=== PATIENT | female | born 1990 | race Caucasian/White ===

== ENCOUNTER 2020-11-30 17:21 | Emergency (ER) | payer OTHER ==
--- OUTSIDE RECORDS SUMMARY | 2020-11-30 17:23 | XMS REPORT | Continuity of Care Document ---
:1990 Author Organization [facility] t Address [address] [place] [address] Dr. Herman [address] [place] [id number] Care Team Providers Name Role Phone LE Attending Clinician Unavailable LE Admitting Clinician Unavailable Problems This patient has no known problems. Allergies, Adverse Reactions, Alerts This patient has no known allergies or adverse reactions. Medications This patient has no known medications. Procedures This patient has no known procedures. Encounters Start End Encounter Admission Attending Care Care Encounter Source Date/Time Date/Time Type Type Clinicians Facility Department ID 2020-09-30 2020-09-30 Outpatient [facility] [id number] 00:00:00 00:00:[address] 2020-09-28 2020-09-28 Outpatient YANETH WONG [facility] [id number] 00:00:00 00:00:[address] Results This patient has no known results.
--- NOTE | 2020-11-30 21:07 | ER ---
Nurse's Notes [facility] Name: Olivia Ding Age: 30 yrs Sex: Female : 1990 Arrival Date: 11/30/2020 Time: 17:27 Bed External Waiting Private MD: Diagnosis: Presentation: 11/30 17:35 Chief complaint: Patient states: Awoke with cramping and vaginal bleeding for 2 days. ll1 Had hysterectomy 2 months ago. Cannot get comfortable now, can barely walk. + Nausea. Deep abdominal pain with BM and urination. Coronavirus screen: Client denies travel out of the [place] in the last 14 days. At this time, the client does not indicate any symptoms associated with coronavirus-19. Ebola Screen: Patient denies travel to an Ebola-affected area in the 21 days before illness onset. Initial Sepsis Screen: Does the patient meet any 2 criteria? HR > 90 bpm. No. Patient's initial sepsis screen is negative. Does the patient have a suspected source of infection? Yes: Acute abdominal pain. Risk Assessment: Do you want to hurt yourself or someone else? Patient reports no desire to harm self or others. Onset of symptoms was November 29, 2020. 17:35 Method Of Arrival: Ambulatory ll1 17:35 Acuity: AYSE 3 ll1 Historical: - Allergies: 17:39 Sulfa (Sulfonamide Antibiotics); ll1 - PMHx: 17:39 None; ll1 - PSHx: 17:39 Hysterectomy; Tonsillectomy; Adenoids; Ear Tubes; ll1 - Immunization history:: Flu vaccine is up to date. - Social history:: Smoking status: Patient denies any tobacco usage or history of. Vital Signs: 17:35 BP 126 / 66; Pulse 109; Resp 17; Temp 99.0; Pulse Ox 98% ; Weight 94.35 kg; Height 5 ll1 ft. 10 in. (177.80 cm); Pain 9/10; 17:35 Body Mass Index 29.84 (94.35 kg, 177.80 cm) 1 ED Course: 17:27 Patient arrived in ED. mr 17:38 Triage completed. ll1 17:39 Arm band placed on. ll1 Administered Medications: No medications were administered Outcome: 21:06 Patient left the ED. 1 Signatures: Dinora Morgan Lynsay, RN RN ll1
[2020-11-30 21:37] VITALS: BP 126/66; TEMP 99; O2SAT 98
== END 2020-11-30 21:06 | disposition left against medical advice (07) ==
LOC: ER 17:21
DX: N93.9 Abnormal uterine and vaginal bleeding, unspecified (principal); Z53.21 Procedure and treatment not carried out due to patient leaving prior to being seen by health care provider
CPT/HCPCS: 99281